=== PATIENT | male | born 1940 | race Caucasian/White ===

== ENCOUNTER → 2021-08-13 | Outpatient (CLI) | payer MEDICARE, OTHER ==
[~2021-08-13] MED LIST: KEFLEX CAP 500500 MG PO
[2021-08-14 08:15] LABS: A/G RATIO 1.8 (1.2-2.2); BILIRUBIN, TOTAL 0.4 mg/dL (0.0-1.2); CALCIUM, SERUM 9.4 mg/dL (8.6-10.2); CREATININE, SERUM 0.78 mg/dL (0.76-1.27); GLOBULIN, TOTAL 2.5 g/dL (1.5-4.5); POTASSIUM, SERUM 4.6 mmol/L (3.5-5.2); PROTEIN, TOTAL, SERUM 7.1 g/dL (6.0-8.5)
[2021-08-15 11:15] LABS: CHOLESTEROL, TOTAL 270 mg/dL (100-199); HDL SIZE 8.5 nm (>=9.2); HDL-C 33 mg/dL (>39); HDL-P (TOTAL) 22.4 umol/L (>=30.5); LARGE VLDL-P 20.4 nmol/L (<=2.7); LDL SIZE 20.1 nm (>20.5); LDL SIZE 20.1 nm (>=20.8); LDL-C 173 mg/dL (0-99); LDL-P 2670 nmol/L (<1000); LP-IR SCORE 95 (<=45); SMALL LDL-P 1629 nmol/L (<=527); TRIGLYCERIDES 328 mg/dL (0-149); VLDL SIZE 62.3 nm (<=46.6)
== END ==
LOC: LAB 08:56
PROVIDERS: Emergency Medicine
DX: I12.9 Hypertensive chronic kidney disease with stage 1 through stage 4 chronic kidney disease, or unspecified chronic kidney disease (principal); N18.30 Chronic kidney disease, stage 3 unspecified; E78.2 Mixed hyperlipidemia
CPT/HCPCS: 36415; 80053; 80061; 83704

== ENCOUNTER → 2022-02-04 | Outpatient (CLI) | payer MEDICARE, OTHER ==
[2022-02-04 10:40] LABS: BUN/CREATININE RATIO 18 (0-10)
== END ==
LOC: LAB 09:38
PROVIDERS: Emergency Medicine
DX: E11.65 Type 2 diabetes mellitus with hyperglycemia (principal); K21.9 Gastro-esophageal reflux disease without esophagitis; E78.2 Mixed hyperlipidemia; I10 Essential (primary) hypertension
CPT/HCPCS: 36415; 80053; 83036

== ENCOUNTER → 2022-03-03 | Outpatient (CLI) | payer MEDICARE | LOC: KOH-I 12:45 | DX: I65.23 Occlusion and stenosis of bilateral carotid arteries (principal); I73.89 Other specified peripheral vascular diseases | CPT/HCPCS: 93880; 93925 ==